=== PATIENT | female | born 1940 | race Two or more races ===

== ENCOUNTER → 2024-02-13 | Outpatient (CLI) | payer OTHER ==
[~2024-02-13] MED LIST: LIDOCAINE 2%HCL (LOCAL ANESTH.) INJ 10ml MDV ONE; MIDAZOLAM HCL 2MG/2ML 2ml VIAL (1mg/ml) ONE; fentaNYL CITRATE 100 MCG/2 ML VL ONE
--- NOTE | 2024-02-13 11:32 | DVH ---
CT CT GUIDANCE FOR NEEDLE PLACEME, HISTORY: ANEMIA/BONE MARROW ASPIRATION BIOPSY COMPARISON: None PROCEDURE: Informed consent and time-out was performed before the procedure. The left posterior pelv ic bone was marked, sterilized, draped, and locally anesthetized using approximately 10 ml of 1% lido yonathan. Axial CT images were used for localization. A 13 gauge [facility] Bone Biopsy kit was used to t ashok 16 mL of aspirate and 1 core sample. The biopsy needle was then removed. No immediate complicatio ns noted. FINDINGS: Axial CT images demonstrates biopsy needle within the left posterior pelvic bone. IMPRESSION: Successful CT-guided aspiration and marrow biopsy of the left posterior pelvic bone.
== END | disposition home or self-care (01) ==
LOC: CT 08:39
PROVIDERS: ATTEND Internal Medicine
DX: D64.9 Anemia, unspecified (principal); I12.9 Hypertensive chronic kidney disease with stage 1 through stage 4 chronic kidney disease, or unspecified chronic kidney disease; N18.6 End stage renal disease; Z99.2 Dependence on renal dialysis; E78.00 Pure hypercholesterolemia, unspecified; E03.9 Hypothyroidism, unspecified; Z79.890 Hormone replacement therapy
CPT/HCPCS: 38222; 77012; J2001; J2250; J3010; 10005; 72192; 99152

== ENCOUNTER 2024-07-03 20:50 | Inpatient (IN) | payer OTHER ==
[~2024-07-03] VITALS: Ht 152.4 cm; Wt 56.8 kg
[2024-07-03] MEDS: IPRATROPIUM BROM 0.5 MG/2.5ML INH SOL NEB ONE (21:30)
[2024-07-03] MEDS: ALBUTEROL SULF 2.5 MG/0.5ML(0.5%) NEB SOLN NEB ONE (21:30)
--- NOTE | 2024-07-03 21:34 | ED.PDOC ---
SOB-HPI HPI Comments 83 year old female brought in by EMS presents to the ED with a chief complaint of shortness of breath onset today around 20:00. Per EMS, patient was at home when she began experiencing shortness of breath, upon their arrival patient was on 2L O2, sat 97% with rapid breathing, breathing treatment was given. Patient states she was seen at [place] yesterday, diagnosed with COPD exacerbation, prescribed Prednisone, did not chicken picker medication. Patient gets dialysis Tuesday, , Tuesday. She is also experiencing RT leg swelling s/p fall 2 weeks ago. PMHx COPD, ESRD, HTN. Denies dizziness, headache, abdominal pain, chest pain, nausea, vomiting, diarrhea. No other symptoms or modifying factors present at this time. Chief Complaint: Shortness of Breath Time Seen by MD: 21:04 Reviewed notes: Medications, Allergies Information Source: Patient, Emergency Med Personnel Mode of Arrival: EMS Severity: Moderate Timing: Hours Duration: Since onset Context: At Rest PE Risk Factors: None History of: COPD Prehospital treatment: Breathing Tx Modifying Factors: Nothing Radiation: No Radiation Past Medical History PAST MEDICAL HISTORY: COPD, ESRD, HTN Surgical History: Unknown [employer] History: No Pertinent [employer] History Family History Family History: Reviewed,noncontributory to illness, No family hx of Cancer, No family hx of DM, No family hx of Heart carrie, No family hx of HTN, No family hx ofKidney carrie, No family hx of Liver carrie, No family hx of Lung carrie, No family hx of Stroke Social History Smoker: Non-Smoker Alcohol: Denies ETOH Use Drugs: Denies Drug Use Lives In: Home All Other Systems: Reviewed and Negative (Comprehensive systems review obtained and negative except for what is stated in the HPI.) Physical Exam General Appearance: Moderate Distress HEENT: Other (Pupils and face symmetric. Moist mucous membranes.) Neck: Full Range of Motion, Normal Inspection Respiratory: Accessory Muscle Use, Decreased Breath Sounds, Respiratory Distress, Rhonchi, Wheezing Cardiovascular: No JVD, Regular Rate/Rhythm Breast Exam: Deferred Gastrointestinal: Non Tender, Soft Genitalia: Deferred Pelvic: Deferred Rectal: Deferred Extremities: Normal range of motion, Other (Right ankle soft tissue swelling) Neurologic: Alert (Oriented x4), No Motor Deficits, Normal Affect, Normal Mood, No Sensory Deficits Cerebellar Function: NOT DONE Reflexes: NOT DONE Skin: Dry, Normal Color, Warm Lymphatic: NOT DONE EKG EKG : Comments Sinus rhythm, rate 90, LA prolonged at 218, normal QRS interval, QTC prolonged at 498, left axis deviation, possible old anteroseptal infarct, nonspecific T changes. Was a procedure done? Was a procedure done?: No Differential Dx Differential Diagnosis: Asthma, Bronchitis, CHF, COPD, Hyperventilation, Panic Attack, Pneumonia, Pulmonary Embolism, Respiratory Distress, URI X-Ray, Labs, Meds, VS Vital Signs Date Time Temp Pulse Resp B/P (MAP) Pulse Ox O2 Delivery O2 Flow Rate FiO2 07/04/24 06:00 93 25 159/84 (109) 95 07/04/24 04:00 90 07/04/24 04:00 87 22 164/79 (107) 95 07/04/24 02:00 86 20 146/67 (93) 94 07/04/24 00:00 87 18 162/104 (123) 94 07/04/24 00:00 115 07/03/24 22:30 98.6 93 12 149/69 (95) 96 98.6 07/03/24 22:30 93 12 96 Nasal Cannula* 4 36 07/03/24 21:30 22 96 Nasal Cannula* 4 36 07/03/24 21:14 90 07/03/24 20:58 98.4 98 20 173/92 (119) 97 Lab Test 07/04/24 00:20 07/03/24 23:30 07/03/24 22:49 07/03/24 21:53 Range/Units Troponin I High Sensitivity 45 *H 46 *H 46 *H </=34 ng/L Influenza Type A Antigen Negative Negative Influenza Type B Antigen Negative Negative SARS-CoV-2 Antigen (Rapid) Negative NEGATIVE White Blood Count 10.6 4.4-10.8 10^3/uL Red Blood Count 3.60 L 4.0-5.20 10^6/uL Hemoglobin 9.4 L 12.2-16.2 g/dL Hematocrit 30.6 L 36.0-46.0 % Mean Corpuscular Volume 85.0 80.0-100.0 fL Mean Corpuscular Hemoglobin 26.2 L 28.0-32.0 pg Mean Corpuscular Hemoglobin Concent 30.9 L 32.0-36.0 g/dL Red Cell Distribution Width 17.1 H 11.8-14.3 % Platelet Count 265 140-450 10^3/uL Mean Platelet Volume 7.5 6.9-10.8 fL Neutrophils (%) (Auto) 87.3 H 37.0-80.0 % Lymphocytes (%) (Auto) 4.3 L 10.0-50.0 % Monocytes (%) (Auto) 7.6 0.0-12.0 % Eosinophils (%) (Auto) 0.3 0.0-7.0 % Basophils (%) (Auto) 0.5 0.0-2.0 % Neutrophils # (Auto) 9.3 H 1.6-8.6 10 ^3/uL Lymphocytes # (Auto) 0.5 0.4-5.4 10 ^3/uL Monocytes # (Auto) 0.8 0-1.3 10 ^3/uL Eosinophils # (Auto) 0 0-0.8 10 ^3/uL Basophils # (Auto) 0.1 0-0.2 10 ^3/uL Nucleated Red Blood Cells 0.0 % B-Type Natriuretic Peptide > 5000.00 0-100 pg/mL Sodium Level 133 L 136-145 mmol/L Potassium Level 4.6 3.5-5.1 mmol/L Chloride Level 97 L 98-107 mmol/L Carbon Dioxide Level 28 20-31 mmol/L Anion Gap 8 5-15 Blood Urea Nitrogen 19 9-23 mg/dL Creatinine 3.22 H 0.550-1.02 mg/dL Glomerular Filtration Rate Calc 14 >90 mL/min BUN/Creatinine Ratio 5.9 L 10.0-20.0 Serum Glucose 106 74-106 mg/dL Calcium Level 9.2 8.7-10.4 mg/dL ORDERING PHYSICIAN: MAGALY ABAD MD PROCEDURE(s): CXRP - CHEST PORTABLE REASON: sob ORDER NUMBER(s): [id number], ACCESSION NUMBER(s): [id number] EXAM: XY CHEST PORTABLE CLINICAL HISTORY: sob TECHNIQUE: Single AP view of the chest WID: COMPARISON: None FINDINGS: Lines and tubes: None Chest: Cardiomegaly without overt pulmonary vascular congestion. Calcified plaque projects over the aortic arch. Interstitial prominence of the lungs. No pleural effusion, pneumothorax, or consolidation. Small left pleural effusion. The osseous structures are grossly intact. IMPRESSION: 1. Cardiomegaly and small left pleural effusion. 2. Interstitial prominence in the lungs which could be interstitial pulmonary edema ATED BY: JESSICA MEZA MD DICTATED DATE/TIME: 07/03/242233 SIGNED BY: JESSICA MEZA MD SIGNED DATE/TIME: 07/03/242233 CC: X-Ray, Labs, Meds, VS Comment 83-year-old female with a history of hypertension, COPD and end-stage renal disease on dialysis presenting with shortness of breath Vitals remarkable for BP 173/92 Exam remarkable for respiratory distress, diminished breath sounds, bilateral wheezes and rhonchi Rhythm strip independently interpreted by me: Sinus rhythm, rate 90, no ectopy. Chest x-ray IMPRESSION: 1. Cardiomegaly and small left pleural effusion. 2. Interstitial prominence in the lungs which could be interstitial pulmonary edema CBC remarkable for hemoglobin 9.4, hematocrit 30.6, metabolic panel remarkable for sodium 133, chloride 97, creatinine 3.22 BNP greater than 5000 Serial troponins 46 and 46 Patient treated with the following in the ED: Albuterol 5 mg/Atrovent 0.5 mg nebulized, Solu-Medrol 125 mg IV, aspirin 325 mg p.o., Ativan 1 mg p.o., Rocephin 1 g IV, Zithromax 500 mg IV On re-evaluation, patient is resting comfortably with stable vitals. Oxygen saturation is 95% on 2 L nasal cannula and patient is not in respiratory distress. Plan is to admit the patient for respiratory support as needed, ongoing serial troponins and Cardiology evaluation Time of 1ST Reevaluation: 22:04 Reevaluation 1ST: Unchanged Patient Education/Counseling: Diagnosis, Treatment, Need For Follow Up Family Education/Counseling: No Family Present Additional Information The following tests were ordered, and results were reviewed by me: TROP-x3, CBC, BNP, XY CHEST, UA, BMP, EKG, COVID, RAPID INFLUENZA A&B Additional Information was gathered from interviewing the following independent historians: EMS I reviewed and agreed with the following test results read by other providers: XY CHEST I discussed treatment and results with medical personnel and: patient Departure 1 Departure Time of Disposition: 00:39 Impression: Primary Impression: COPD with acute exacerbation Additional Impressions: [id number] respiratory failure Qualified Codes: J96.20 - Acute and chronic respiratory failure, unspecified whether with hypoxia or hypercapnia Pleural effusion Fluid overload Qualified Codes: E87.70 - Fluid overload, unspecified Elevated troponin Disposition: 09 ADMITTED INPATIENT Admit to: Tele Condition: Guarded Critical Care Note Critical Care Time?: Yes (45 min-critical care time only) Critical care comment: Critical care time including multiple bedside re-evaluations, review of lab and imaging studies, and discussion of the case with the admitting provider. Patient is high risk for respiratory and/or hemodynamic decompensation. Stability Stability form required: No Heart Score Heart Score: Heart Score Response (Comments) Value History N/A 0 EKG N/A 0 Age N/A 0 Risk Factors N/A 0 Troponin N/A 0 Total 0 I personally scribed for MAGALY ABAD MD ([email or web address]) on 07/03/24 at 21:34. Electronically submitted by Geri Mendez ([email or web address]). I personally scribed for MAGALY ABAD MD ([email or web address]) on 07/03/24 at 22:05. Electronically submitted by Geri Mendez ([email or web address]). I personally scribed for MAGALY ABAD MD ([email or web address]) on 07/03/24 at 23:17. Electronically submitted by Geri Mendez ([email or web address]). I personally scribed for MAGALY ABAD MD ([email or web address]) on 07/03/24 at 23:30. Electronically submitted by Geri Mendez ([email or web address]). MAGALY ABAD MD Jul 03, 2024 21:34
[2024-07-03 22:30] VITALS: PULSE 93; RESP 12; O2SAT 96
--- NOTE | 2024-07-03 22:37 | DVH ---
EXAM: XY CHEST PORTABLE CLINICAL HISTORY: sob TECHNIQUE: Single AP view of the chest WID: COMPARISON: None FINDINGS: Lines and tubes: None Chest: Cardiomegaly without overt pulmonary vascular congestion. Calcified plaque projects over the aortic a rch. Interstitial prominence of the lungs. No pleural effusion, pneumothorax, or consolidation. Small left pleural effusion. The osseous structures are grossly intact. IMPRESSION: 1. Cardiomegaly and small left pleural effusion. 2. Interstitial prominence in the lungs which could be interstitial pulmonary edema
[2024-07-03] MEDS: methylPREDNISolone SOD SUCC 125 MG/2 ML VL IV ONE (22:45)
[2024-07-03 23:03] LABS: Potassium 4.6 mmol/L (3.5-5.1)
[2024-07-03 23:04] LABS: Anion Gap 8 (5-15); Calcium 9.2 mg/dL (8.7-10.4); Carbon Dioxide 28 mmol/L (20-31)
[2024-07-03 23:04] LABS: Basophils # (auto) 0.1 10 ^3/uL (0-0.2); Hematocrit 30.6 % (36.0-46.0); Lymphocytes # (auto) 0.5 10 ^3/uL (0.4-5.4); Mean Corpuscular Hgb Conc. 30.9 g/dL (32.0-36.0)
[2024-07-03 23:06] LABS: Basophils % (auto) 0.5 % (0.0-2.0); Eosinophils # (auto) 0 10 ^3/uL (0-0.8); Eosinophils % (auto) 0.3 % (0.0-7.0); Hemoglobin 9.4 g/dL (12.2-16.2); Lymphocytes % (auto) 4.3 % (10.0-50.0); Mean Corpuscular Hemoglobin 26.2 pg (28.0-32.0); Monocytes # (auto) 0.8 10 ^3/uL (0-1.3); Monocytes % (auto) 7.6 % (0.0-12.0); Neutrophils # (auto) 9.3 10 ^3/uL (1.6-8.6); Neutrophils % (auto) 87.3 % (37.0-80.0); Platelet Count (auto) 265 10^3/uL (140-450); Red Cell Distribution Width 17.1 % (11.8-14.3); White Blood Cell 10.6 10^3/uL (4.4-10.8)
[2024-07-03 23:09] LABS: BUN/Creatinine Ratio 5.9 (10.0-20.0); Blood Urea Nitrogen 19 mg/dL (9-23); Glucose 106 mg/dL (74-106)
[2024-07-03 23:11] LABS: Chloride 97 mmol/L (98-107); Sodium 133 mmol/L (136-145)
[2024-07-03] MEDS: ASPirin 325 MG TAB PO ONE (23:40)
[2024-07-03] MEDS: LORazepam 0.5 MG TAB PO ONE (23:41)
[2024-07-04] VITALS (12 sets, daily range): BP systolic 114–152; BP diastolic 61–87; PULSE 89–109; RESP 17–21; TEMP 98.1–98.6; O2SAT 88–100
[2024-07-04 00:33] LABS: Rapid Influenza A Negative (Negative); Rapid Influenza B Negative (Negative)
[2024-07-04 00:34] LABS: COVID19 ANTIGEN SOFIA FIA NEGATIVE (NEGATIVE)
[2024-07-04] MEDS: cefTRIAXone 1GM/50ML D5W 50 ML IV ONE (01:27)
[2024-07-04] MEDS: AZITHROMYCIN 500MG/ 250ML 250 ML IV ONE (02:00)
--- NOTE | 2024-07-04 06:14 | ECG ---
[facility] Test Date: 2024-07-03 Test Time: 21:14:56 Pat Name: LEANA HAYWOOD Department: ER Room: 0292T Gender: F E Learning Developer: : [id number] Requested By: MAGALY RANGEL Order Number: [id number] Reading MD: Leonardo Barron Measurements Intervals [place] Rate: 90 P: 234 VT: 218 QRS: -33 QRSD: 100 T: 38 QT: 407 QTc: 498 Interpretive Statements Sinus or ectopic atrial rhythm Borderline prolonged VT interval Left ventricular hypertrophy Borderline prolonged QT interval Electronically Signed On 07-05-2024 11:59:19 PST by Leonardo Barron Please click the below link to view image of tracing.
[2024-07-04] MEDS ORDERED: HYDROcodone-ACET 5/325MG TAB PO PRN (08:00)
[2024-07-04] MEDS ORDERED: IPRATROPIUM BROM 0.5 MG/2.5ML INH SOL NEB PRN (08:00)
[2024-07-04] MEDS ORDERED: ACETAMINOPHEN 325 MG TAB PO PRN (08:00)
[2024-07-04] MEDS ORDERED: DOCUSATE SOD 100 MG CAP PO PRN (08:00)
[2024-07-04] MEDS ORDERED: NITROGLYCERIN 0.4 MG SL TAB SL PRN (08:00)
[2024-07-04] MEDS ORDERED: ALBUTEROL SULF 2.5 MG/0.5ML(0.5%) NEB SOLN NEB PRN (08:00)
[2024-07-04] MEDS ORDERED: MORPHINE SULFATE INJ 2 MG/ml SYRG IV PRN (08:00)
[2024-07-04] MEDS ORDERED: ONDANSETRON HCL 4 MG/2 ML VIAL IV PRN (08:00)
--- NOTE | 2024-07-04 08:14 | DVHHP2 ---
History of Present Illness Reason for Visit: Shortness of breath History of Present Illness Mindy Donnelly is an 83-year-old female with past medial history of COPD, hypertension, hyperlipidemia, hypothyroidism, and ESRD on HD T,,Tue, who came to the hospital for shortness of breath. Patient states she has been short of breath for about 1 week. She went to a different hospital 2 days ago, who gave her a breathing treatment and sent her home. On assessment, patient is tachypneic, using accessory muscles, and wheezing. RT has been paged for a breathing treatment. Cardiovascular: HTN, hyperipidemia Renal/: Chronic renal failure (on HD) Endocrine: Hypothyroidism Past Surgical History: Hysterectomy, Other (Left arm fistula) Smoke: No ALCOHOL: none Drugs: None Lives: with Family Domestic Violence: Neg Review of Systems Constitutional: No: Fever, Chills, Sweats, Weakness, Malaise, Other Eyes: No: Pain, Vision change, Conjunctivae inflammation, Eyelid inflammation, Other, Redness ENT: No: Ear pain, Ear discharge, Nose pain, Nose discharge, Nose congestion, Mouth pain, Mouth swelling, Throat pain, Throat swelling, Other Respiratory: Shortness of breath, SOB with excertion, Wheezing; No: Cough, Dry, Hemoptysis, Pleuritic Pain, Sputum, Wheezing, Other Cardiovascular: No: Chest Pain, Palpitations, Orthopnea, Paroxysmal Noc. Dyspnea, Edema, Lt Headedness, Other Gastrointestinal: No: Nausea, Vomiting, Abdominal Pain, Diarrhea, Constipation, Melena, Hematochezia, Other Genitourinary: No Dysuria, No Frequency, No Incontinence, No Hematuria, No Retention, No Other Musculoskeletal: No: other, neck pain, shoulder pain, arm pain, back pain, hand pain, leg pain, foot pain Skin: No: Rash, Lesions, Jaundice, Bruising, Other Neurological: No: Weakness, Numbness, Incoordination, Change in speech, Confusion, Seizures, Other Allergies: Coded Allergies: NO KNOWN ALLERGIES (Unverified , 07/03/24) Medications Current Medications Medications Dose Ordered Sig/Nirmal Route Start Time Stop Time Status Last Admin Dose Admin Sodium Chloride 10 ml Q8HR IV 07/04/24 14:00 UNV Acetaminophen/ Hydrocodone Bitart 1 tab Q4HP PRN PO 07/04/24 08:00 UNV Ondansetron HCl 4 mg Q4HP PRN IV 07/04/24 08:00 UNV Docusate Sodium 100 mg BIDPRN PRN PO 07/04/24 08:00 UNV Acetaminophen 650 mg Q6HP PRN PO 07/04/24 08:00 UNV Nitroglycerin 0.4 mg Q5MINP PRN SL 07/04/24 08:00 UNV Morphine Sulfate 2 mg Q30M PRN IV 07/04/24 08:00 UNV Ipratropium [place] 0.5 mg Q4HPRN PRN NEB 07/04/24 08:00 UNV Albuterol 2.5 mg Q4HPRN PRN NEB 07/04/24 08:00 UNV Methylprednisolone Sodium Succinate 40 mg BID IV 07/04/24 10:00 UNV Exam Vital Signs Vital Signs Date Time Temp Pulse Resp B/P (MAP) Pulse Ox O2 Delivery O2 Flow Rate FiO2 07/04/24 06:00 93 25 159/84 (109) 95 07/03/24 22:30 98.6 98.6 07/03/24 22:30 Nasal Cannula* 4 36 General Appearance: Alert, Oriented X3, Cooperative, moderate distress HEENT: Atraumatic, PERRLA Respiratory: Other (Tachypneic, using accessory muscles, wheezing) Cardiovascular: Regular rate, Normal S1, Normal S2 Abdominal: Normal bowel sounds, Soft, No tenderness Extremities: No clubbing, No cyanosis, Normal pulses, Other (edema to right ankle) Skin: No rashes, No breakdown, No significant lesion Neuro: Normal speech, Other (uses a walker at baseline) Psych/Mental Status: Mental status NL, Mood NL Labs/Xrays Labs Test 07/04/24 00:20 07/03/24 23:30 07/03/24 22:49 07/03/24 21:53 Range/Units Troponin I High Sensitivity 45 *H </=34 ng/L Influenza Type A Antigen Negative Negative Influenza Type B Antigen Negative Negative SARS-CoV-2 Antigen (Rapid) Negative NEGATIVE White Blood Count 10.6 4.4-10.8 10^3/uL Red Blood Count 3.60 L 4.0-5.20 10^6/uL Hemoglobin 9.4 L 12.2-16.2 g/dL Hematocrit 30.6 L 36.0-46.0 % Mean Corpuscular Volume 85.0 80.0-100.0 fL Mean Corpuscular Hemoglobin 26.2 L 28.0-32.0 pg Mean Corpuscular Hemoglobin Concent 30.9 L 32.0-36.0 g/dL Red Cell Distribution Width 17.1 H 11.8-14.3 % Platelet Count 265 140-450 10^3/uL Mean Platelet Volume 7.5 6.9-10.8 fL Neutrophils (%) (Auto) 87.3 H 37.0-80.0 % Lymphocytes (%) (Auto) 4.3 L 10.0-50.0 % Monocytes (%) (Auto) 7.6 0.0-12.0 % Eosinophils (%) (Auto) 0.3 0.0-7.0 % Basophils (%) (Auto) 0.5 0.0-2.0 % Neutrophils # (Auto) 9.3 H 1.6-8.6 10 ^3/uL Lymphocytes # (Auto) 0.5 0.4-5.4 10 ^3/uL Monocytes # (Auto) 0.8 0-1.3 10 ^3/uL Eosinophils # (Auto) 0 0-0.8 10 ^3/uL Basophils # (Auto) 0.1 0-0.2 10 ^3/uL Nucleated Red Blood Cells 0.0 % B-Type Natriuretic Peptide > 5000.00 0-100 pg/mL Sodium Level 133 L 136-145 mmol/L Potassium Level 4.6 3.5-5.1 mmol/L Chloride Level 97 L 98-107 mmol/L Carbon Dioxide Level 28 20-31 mmol/L Anion Gap 8 5-15 Blood Urea Nitrogen 19 9-23 mg/dL Creatinine 3.22 H 0.550-1.02 mg/dL Glomerular Filtration Rate Calc 14 >90 mL/min BUN/Creatinine Ratio 5.9 L 10.0-20.0 Serum Glucose 106 74-106 mg/dL Calcium Level 9.2 8.7-10.4 mg/dL EXAM: XY CHEST PORTABLE FINDINGS: Lines and tubes: None Chest: Cardiomegaly without overt pulmonary vascular congestion. Calcified plaque projects over the aortic arch. Interstitial prominence of the lungs. No pleural effusion, pneumothorax, or consolidation. Small left pleural effusion. The osseous structures are grossly intact. IMPRESSION: 1. Cardiomegaly and small left pleural effusion. 2. Interstitial prominence in the lungs which could be interstitial pulmonary edema Assessment/Plan Assessment/Plan Assessment: COPD with acute exacerbation, ESRD on HD, Hypertension, Hypothyroidism, Hyperlipidemia, Plan: Admit to Tele, Nephrology consult, Breathing treatments IV steroids, IV antibiotics, Fall risk, Home medications reconciled, Plan discussed with: Patient My Orders Orders - KAMLA HERBERT GRAIN COMBINER Procedure Category Date Status Time Admit ADMIT 07/04/24 Transmitted 07:52 Code Status CODE 07/04/24 Transmitted 07:52 Renal DIET 07/04/24 Transmitted Standard(2gna,3gk,Lopho) Breakfast Sodium Chloride Lock PHA 07/04/24 Logged (Saline Lock Ns) 14:00 Hydrocodone-Acet PHA 07/04/24 Logged 5/325mg Tab ([facility] 08:00 Ondansetron Hcl PHA 07/04/24 Logged (Zofran) 08:00 Docusate Sodium PHA 07/04/24 Logged Capsule (Colace 08:[address] [facility] 07/04/[address] 07:52 Complete Blood Count LAB 07/05/24 Verified 04:00 Comprehensive LAB 07/05/24 Verified Metabolic Panel 04:00 Condition: Critical MARCO ANTONIO 07/04/24 In Process 07:52 Acetaminophen Tablet PHA 07/04/24 Logged (Tylenol Tablet) 08:00 Nitroglycerin PHA 07/04/24 Logged Sublingual (Ntrostat 08:00 Morphine Sulfate PHA 07/04/24 Logged Injection 08:00 Stat Ekg For Chest MARCO ANTONIO 07/04/24 In Process Pain 07:[address] [facility] 07/04/24 In Process From Base 07:[address] [facility] 07/04/24 In Process 24 Hours 07:52 Emergency Dysrhythmia MARCO ANTONIO 07/04/24 In Process Protocol 07:[address] [facility] 07/04/24 In Process Every Shift 07:52 Oxygen By Nasal RT 07/04/24 Transmitted Cannula 07:52 Ipratropium Medneb PHA 07/04/24 Logged (Atrovent Medneb) 08:00 Albuterol Medneb PHA 07/04/24 Logged (Ventolin Medneb) 08:00 Methylprednisolone PHA 07/04/24 Logged Sod Succ (Solu Medrol 10:00 *[facility] CONS 07/04/24 Verified Mar 08:07 Date of Service: Jul 04, 2024 Billing Provider: KAMLA HERBERT Common Visit Codes: [id number] INP/OBS CARE (MOD) KAMLA HERBERT Jul 04, 2024 08:14
[2024-07-04] MEDS ORDERED: AMLO1TAB23 PO (08:22)
[2024-07-04] MEDS ORDERED: SIMV40TA18 PO (08:22)
[2024-07-04] MEDS ORDERED: SERT25TA28 PO (08:22)
[2024-07-04] MEDS ORDERED: BUDE0.5S NEB (08:22)
[2024-07-04] MEDS ORDERED: FURO20TA4 PO (08:22)
[2024-07-04] MEDS ORDERED: MEGE40TA4 PO (08:22)
[2024-07-04] MEDS ORDERED: TRAZ300T13 PO (08:22)
[2024-07-04] MEDS ORDERED: LEVO75TA6 PO (08:22)
[2024-07-04] MEDS ORDERED: DONE1TAB88 PO (08:22)
[2024-07-04] MEDS: IPRATROPIUM BROM 0.5 MG/2.5ML INH SOL NEB SCH (09:16)
[2024-07-04] MEDS: BUDESONIDE (INHALATION) 0.5 MG/2 ML NEB NEB SCH (09:16)
[2024-07-04] MEDS: ALBUTEROL SULF 2.5 MG/0.5ML(0.5%) NEB SOLN NEB SCH (09:17)
[2024-07-04] MEDS ORDERED: traZODone HCL 50 MG TAB PO PRN (09:30)
[2024-07-04] MEDS: MEGESTROL ACETATE 20 MG TAB PO SCH (10:00)
[2024-07-04 10:40] LABS: Base Excess 1.5 mmol/L (-2.0-3.0)
[2024-07-04] MEDS: DONEPEZIL HYDROCHLORIDE 5 MG TAB PO SCH (10:40)
[2024-07-04] MEDS: LEVOTHYROXINE SODIUM 25 MCG TAB PO SCH (10:40)
[2024-07-04] MEDS: SERTRALINE HCL 50 MG TAB PO SCH (10:41)
[2024-07-04] MEDS: amLODIPine BESYLATE 5 MG TAB PO SCH (10:41)
[2024-07-04] MEDS: FUROSEMIDE 20 MG TAB PO SCH (10:41)
[2024-07-04] MEDS: methylPREDNISolone SOD SUCC 40 MG/ML VL IV SCH (10:42)
--- NOTE | 2024-07-04 11:53 | DVHPN2 ---
Subjective patient reports worsening SOB at home. States she is compliant with HD. Placed on Bipap this morning. Much more comfortable. Reviewed: Care Plan, H&P Changes from previous H/P or p: Changes Eyes: No Pain, No Vision change, No Conjunctivae inflammation, No Eyelid inflammation, No Other, No Redness ENT: No Ear pain, No Ear discharge, No Nose pain, No Nose discharge, No Nose congestion, No Mouth pain, No Mouth swelling, No Throat pain, No Throat swelling, No Other Cardiovascular: No Chest Pain, No Palpitations, No Orthopnea, No Paroxysmal Noc. Dyspnea, No Edema, No Lt Headedness, No Other Respiratory: No Cough, No Dry; Shortness of breath, SOB with excertion, W heezing; No Hemoptysis, No Pleuritic Pain, No Sputum, No Other Gastrointestinal: No Nausea, No Vomiting, No Abdominal Pain, No Diarrhea, No Constipation, No Melena, No Hematochezia, No Other Genitourinary: No Dysuria, No Frequency, No Incontinence, No Hematuria, No Retention, No Other Musculoskeletal: No other, No neck pain, No shoulder pain, No arm pain, No back pain, No hand pain, No leg pain, No foot pain Skin: No Rash, No Lesions, No Jaundice, No Bruising, No Other Objective Vitals Vital Signs Date Time Temp Pulse Resp B/P (MAP) Pulse Ox O2 Delivery O2 Flow Rate FiO2 07/04/24 10:50 95 Bi-pap/CPAP 07/04/24 10:50 30 30 07/04/24 10:50 96 152/68 07/04/24 09:36 98.8 28 98.8 07/04/24 09:36 4 Intake/Output Intake and Output 07/04/24 07:00 Intake Total 50 ml Balance 50 ml Intake IV Total 50 ml General Appearance: Alert, Oriented X3, mild distress HEENT: Atraumatic Lungs: Other (Crackles and mechincal bipap sounds. ) Cardiovascular: Regular rate, Normal S1, Normal S2 Abdomen: Soft, No tenderness Musculoskeletal: Normal sensory function Extremities: No edema Neuro: Normal speech Psych/Mental Status: Mental status NL Medications Current Medications Medications Dose Ordered Sig/Nirmal Route Start Time Stop Time Status Last Admin Dose Admin Sodium Chloride 10 ml Q8HR IV 07/04/24 14:00 Acetaminophen/ Hydrocodone Bitart 1 tab Q4HP PRN PO 07/04/24 08:00 Ondansetron HCl 4 mg Q4HP PRN IV 07/04/24 08:00 Docusate Sodium 100 mg BIDPRN PRN PO 07/04/24 08:00 Acetaminophen 650 mg Q6HP PRN PO 07/04/24 08:00 Nitroglycerin 0.4 mg Q5MINP PRN SL 07/04/24 08:00 Morphine Sulfate 2 mg Q30M PRN IV 07/04/24 08:00 Methylprednisolone Sodium Succinate 40 mg BID IV 07/04/24 10:00 07/04/24 10:42 40 MG Budesonide 0.5 mg BID NEB 07/04/24 10:00 07/04/24 09:16 0.5 MG Furosemide 20 mg DAILY PO 07/04/24 10:00 07/04/24 10:41 20 MG Amlodipine Besylate 10 mg DAILY PO 07/04/24 10:00 07/04/24 10:41 10 MG Donepezil HCl 10 mg DAILY PO 07/04/24 10:00 07/04/24 10:40 10 MG Levothyroxine Sodium 75 mcg DAILY@0700 PO 07/04/24 10:00 07/04/24 10:40 75 MCG Megestrol Acetate 40 mg BID PO 07/04/24 10:00 Sertraline HCl 25 mg DAILY PO 07/04/24 10:00 07/04/24 10:41 25 MG Atorvastatin Calcium 20 mg HS PO 07/04/24 22:00 Trazodone HCl 300 mg QHSP PRN PO 07/04/24 09:30 Albuterol 2.5 mg Q4HWA NEB 07/04/24 10:00 07/04/24 09:17 2.5 MG Ipratropium [place] 0.5 mg Q4HWA NEB 07/04/24 10:00 07/04/24 09:16 0.5 MG Ceftriaxone Sodium 50 ml @ 100 mls/hr DAILY@09 IV 07/05/24 09:00 UNV Furosemide 80 mg BIDD IV 07/04/24 18:00 UNV Laboratory Results Laboratory Tests 07/03/24 21:53 07/03/24 22:49 Chemistry Test 07/03/24 21:53 Calcium Level 9.2 mg/dL (8.7-10.4) Cardiac Markers Test 07/03/24 22:49 B-Type Natriuretic Peptide > 5000.00 pg/mL (0-100) Blood Gas Results Test 07/04/24 10:30 Arterial Blood pH 7.538 (7.350-7.450) FiO2 % 36.0 Assessment/Plan Assessment/Plan Acute Resp failu with hypoxia. oxygen sat down to mid 80s on NC. Most likely 2/2 COPD exascerbation vs fluid overload form ESRD. COPD with acute exacerbation ESRD on HD Hypertension, Hypothyroidism, Hyperlipidemia, dementia Plan: Continue on Bipap ABG on Bipap Consult Pulm Ceft and Azitro continue Doneepil. Nephrology consult appreciated Breathing treatments IV steroids, FULL CODE/ Plan discussed with: Patient My Orders Orders - JAVID CLIFTON MD Procedure Category Date Status Time Abg W/ Co-Ox RT 07/04/24 Logged 10:14 BIPAP RT 07/04/24 Logged 10:40 Date of Service: Jul 04, 2024 Billing Provider: JAVID CLIFTON MD Common Visit Codes: [id number] INP/OBS CARE(HIGH) JAVID CLIFTON MD Jul 04, 2024 11:53
[2024-07-04] MEDS: SODIUM CHLOR 0.9% PF (SALINE LOCK) 10ML VIAL/SYR IV SCH (14:09)
--- NOTE | 2024-07-04 16:03 | DVHINCON2 ---
Date of service: Jul 04, 2024 Referring Physician KYLEIGH Marie. Reason for Consultation End-stage renal disease management. History of Present Illness 83-year-old patient with significant history of end-stage renal disease on hemodialysis Tuesday, and Saturdays with last dialysis session was yesterday, CHF, COPD, chronic hypoxic respiratory failure, hyperlipidemia, anemia who presents to the hospital with shortness of breath for about one week which has been worsening and unrelieved by ultrafiltration with dialysis. She denies fever chills denies hemoptysis but she has significant history of COPD and has been also wheezing with minimal improvement with bronchodilator therapy. Her symptoms have been associated with mild right leg swelling. She was seen in the hospital and diagnosed with COPD exacerbation. Initial labs revealed finding consistent with end-stage renal disease status in addition to chest x-ray showing cardiomegaly, interstitial markings increased Past Medical History End-stage renal disease, hypertension, hyperlipidemia, COPD, chronic hypoxic respiratory failure, anemia. Past Surgical History Hemodialysis access placement. Allergies: Coded Allergies: NO KNOWN ALLERGIES (Unverified , 07/03/24) Home Meds Reported Medications Furosemide (Furosemide) 20 Mg Tab, 1 TAB PO DAILY 07/04/24 Megestrol Acetate (Megestrol Acetate) 40 Mg Tab, 1 TAB PO BID 07/04/24 Sertraline Hcl (Sertraline Hcl) 25 Mg Tab, 1 TAB PO DAILY 07/04/24 Donepezil Hydrochloride (DONEPEZIL HCL) 10 Mg Tab, 1 TAB PO DAILY 07/04/24 Levothyroxine Sodium (Levothyroxine Sodium) 75 Mcg Tab, 1 TAB PO DAILY 07/04/24 Simvastatin (Simvastatin) 40 Mg Tab, 1 TAB PO HS 07/04/24 Trazodone Hcl (Trazodone Hcl) 300 Mg Tab, 1 TAB PO QHSP PRN 07/04/24 Budesonide (Inhalation) (Budesonide) 0.5 Mg/2 Ml Kiya, 1 VIAL NEB BID 07/04/24 Amlodipine Besylate (Amlodipine Besylate) 10 Mg Tab, 1 TAB PO DAILY 07/04/24 Current Medications Current Medications Medications (Trade) Dose Ordered Sig/Nirmal Route PRN Reason Start Time Stop Time Status Last Admin Sodium Chloride (Saline Lock Ns) 10 ml Q8HR IV 07/04/24 14:00 07/04/24 14:09 Acetaminophen/ Hydrocodone Bitart ([place] 5/325MG Tab) 1 tab Q4HP PRN PO MODERATE PAIN (4-6 PAIN SCALE) 07/04/24 08:00 Ondansetron HCl (Zofran) 4 mg Q4HP PRN IV NAUSEA / VOMITING 07/04/24 08:00 Docusate Sodium (Colace Capsule) 100 mg BIDPRN PRN PO FOR CONSTIPATION 07/04/24 08:00 Acetaminophen (Tylenol Tablet) 650 mg Q6HP PRN PO PAIN SCALE 1-3 OR TEMP>100.4 07/04/24 08:00 Nitroglycerin (Ntrostat Sublingual) 0.4 mg Q5MINP PRN SL FOR CHEST PAIN 07/04/24 08:00 Morphine Sulfate 2 mg Q30M PRN IV FOR CHEST PAIN 07/04/24 08:00 Ipratropium [place] (Atrovent Medneb) 0.5 mg Q4HPRN PRN NEB SHORTNESS OF BREATH 07/04/24 08:00 07/04/24 08:25 DC Albuterol (Ventolin Medneb) 2.5 mg Q4HPRN PRN NEB SHORTNESS OF BREATH 07/04/24 08:00 07/04/24 08:25 DC Methylprednisolone Sodium Succinate (Solu Medrol) 40 mg BID IV 07/04/24 10:00 07/04/24 10:42 Budesonide (Pulmicort) 0.5 mg BID NEB 07/04/24 10:00 07/04/24 09:16 Furosemide (Lasix Tablet) 20 mg DAILY PO 07/04/24 10:00 07/04/24 11:55 DC 07/04/24 10:41 Amlodipine Besylate (Norvasc Tablet) 10 mg DAILY PO 07/04/24 10:00 07/04/24 10:41 Donepezil HCl (Aricept Tablet) 10 mg DAILY PO 07/04/24 10:00 07/04/24 10:40 Levothyroxine Sodium (Synthroid Tablet) 75 mcg DAILY@0700 PO 07/04/24 10:00 07/04/24 10:40 Megestrol Acetate (Megace Tablet) 40 mg BID PO 07/04/24 10:00 07/04/24 11:51 DC Sertraline HCl (Zoloft) 25 mg DAILY PO 07/04/24 10:00 07/04/24 10:41 Atorvastatin Calcium (Lipitor) 20 mg HS PO 07/04/24 22:00 Trazodone HCl (Desyrel) 300 mg QHSP PRN PO FOR INSOMNIA 07/04/24 09:30 Albuterol (Ventolin Medneb) 2.5 mg Q4HWA NEB 07/04/24 10:00 07/04/24 13:42 Ipratropium [place] (Atrovent Medneb) 0.5 mg Q4HWA NEB 07/04/24 10:00 07/04/24 13:42 Ceftriaxone Sodium 50 ml @ 100 mls/hr DAILY@09 IV 07/05/24 09:00 Furosemide (Lasix Injection) 80 mg BIDD IV 07/04/24 18:00 Azithromycin 250 ml @ 125 mls/hr DAILY IV 07/05/24 10:00 Social History Patient denies smoking alcohol or drug abuse. Review of Systems HEENT: Oral mucosa dry Neck no JVD Cardiovascular: Denies for chest pain denies orthopnea or PND Respiratory: Positive for cough or shortness of breath Gastrointestinal: Denies for nausea vomiting Musculoskeletal: Denies myalgias Neurological: Denies focal weakness Dermatological: Denies any rash The rest of the review of systems were reviewed pertinent positives and pertinent negatives are as per HPI up to 12 points review of systems H&P Exam Vital Signs/I&O Vital Sign Date Time Temp Pulse Resp B/P (MAP) Pulse Ox O2 Delivery O2 Flow Rate FiO2 07/04/24 15:00 109 18 136/71 (92) 95 07/04/24 13:42 Nasal Cannula* 4 36 07/04/24 09:36 98.8 98.8 l Intake and Output 07/03/24 07/04/24 19:00 07:00 Intake Total 50 ml Balance 50 ml Intake IV Total 50 ml Physical Exam HEENT: No evidence of JVD, no oral ulcers. Pulmonary: Bilateral wheezing and decreased sounds at the bases are clear on auscultation bilaterally Cardiovascular S1-S2, no S3 or S4 Abdomen: Bowel sounds positive, soft no rebound tenderness Skin: No rash Neurological: Alert, oriented, no focal weakness Labs/Diagnostic Data Labs/Diagnostic Data Laboratory Tests Test 07/04/24 10:30 07/04/24 00:20 07/03/24 23:30 07/03/24 22:49 Range/Units Blood Gas Specimen Type Arterial Blood Gas Sample Site Right radial Blood Gas Patient Temperature 37.0 Arterial Blood Date Drawn Arterial Blood pH 7.538 H 7.350-7.450 Arterial Blood Partial Pressure CO2 28.3 L 32.0-45.0 mmHg Arterial Blood Partial Pressure O2 63.2 L 83.0-108.0 mmHg Arterial Blood HCO3 23.5 21.0-28.0 mmol/L Arterial Blood Oxygen Saturation 92.3 L 94.0-98.0 % Arterial Blood Base Excess 1.5 -2.0-3.0 mmol/L Arterial Blood Oxyhemoglobin 91.4 L 94.0-98.0 % Arterial Blood Carboxyhemoglobin 0.3 L 0.5-1.5 % Arterial Blood Methemoglobin 0.7 0.0-1.5 % Edwin Test Yes Blood Gas Total Hemoglobin 10.10 L 12.0-16.0 g/dL Blood Gas Modality Nasal cannula FiO2 % 36.0 Troponin I High Sensitivity 45 *H 46 *H </=34 ng/L Influenza Type A Antigen Negative Negative Influenza Type B Antigen Negative Negative SARS-CoV-2 Antigen (Rapid) Negative NEGATIVE White Blood Count 10.6 4.4-10.8 10^3/uL Red Blood Count 3.60 L 4.0-5.20 10^6/uL Hemoglobin 9.4 L 12.2-16.2 g/dL Hematocrit 30.6 L 36.0-46.0 % Mean Corpuscular Volume 85.0 80.0-100.0 fL Mean Corpuscular Hemoglobin 26.2 L 28.0-32.0 pg Mean Corpuscular Hemoglobin Concent 30.9 L 32.0-36.0 g/dL Red Cell Distribution Width 17.1 H 11.8-14.3 % Platelet Count 265 140-450 10^3/uL Mean Platelet Volume 7.5 6.9-10.8 fL Neutrophils (%) (Auto) 87.3 H 37.0-80.0 % Lymphocytes (%) (Auto) 4.3 L 10.0-50.0 % Monocytes (%) (Auto) 7.6 0.0-12.0 % Eosinophils (%) (Auto) 0.3 0.0-7.0 % Basophils (%) (Auto) 0.5 0.0-2.0 % Neutrophils # (Auto) 9.3 H 1.6-8.6 10 ^3/uL Lymphocytes # (Auto) 0.5 0.4-5.4 10 ^3/uL Monocytes # (Auto) 0.8 0-1.3 10 ^3/uL Eosinophils # (Auto) 0 0-0.8 10 ^3/uL Basophils # (Auto) 0.1 0-0.2 10 ^3/uL Nucleated Red Blood Cells 0.0 % B-Type Natriuretic Peptide > 5000.00 0-100 pg/mL Test 07/03/24 21:53 Range/Units Sodium Level 133 L 136-145 mmol/L Potassium Level 4.6 3.5-5.1 mmol/L Chloride Level 97 L 98-107 mmol/L Carbon Dioxide Level 28 20-31 mmol/L Anion Gap 8 5-15 Blood Urea Nitrogen 19 9-23 mg/dL Creatinine 3.22 H 0.550-1.02 mg/dL Glomerular Filtration Rate Calc 14 >90 mL/min BUN/Creatinine Ratio 5.9 L 10.0-20.0 Serum Glucose 106 74-106 mg/dL Calcium Level 9.2 8.7-10.4 mg/dL Troponin I High Sensitivity 46 *H </=34 ng/L Chest x-ray shows increased interstitial markings and left-sided pleural effusion Assessment Assessment: 1. End-stage renal disease on hemodialysis 2. Acute COPD exacerbation 3. Acute CHF 4. Anemia of end-stage renal disease 5. Hypertension 6. Acute on chronic hypoxic respiratory failure Plan: Hemodialysis today, tomorrow for her regular session Limit fluid intake Lasix IV Bronchodilator therapy, steroids, antibiotics as per primary team Less than 1 L per day Slava for goal hemoglobin 10 g to 11 grams/deciliter Continue antihypertensive med Oxygen supplementation to keep pulses more than 92% Thank you very much for allowing us to participate in the care of this patient Plan discussed with: Patient GEOFF JOE MD Jul 04, 2024 16:03
[2024-07-04] MEDS: FUROSEMIDE 40 MG/4 ML VIAL IV SCH (18:18)
--- NOTE | 2024-07-04 21:15 | DVHINCON2 ---
Date of service: Jul 04, 2024 Referring Physician Javid Clifton MD Reason for Consultation COPD exacerbation History of Present Illness An 83-year-old woman with past medical history of COPD, hypertension, hyperlipidemia, hypothyroidism, and ESRD on hemodialysis T-T- who presented to ED on 07/03/24 for shortness of breath. Patient states she has been short of breath for about 1 week. She went to a different hospital 2 days ago, where she got a breathing treatment and was DC'd home. On assessment, patient was tachypneic, using accessory muscles, and wheezing. She was admitted for further care and pulmonary consultation is requested for evaluation and management of acute on chronic hypoxic respiratory failure and COPD exacerbation. Review of Systems: 14-point review of systems negative unless otherwise noted above. Past Medical History: COPD, hypertension, hyperlipidemia, hypothyroidism, and ESRD on hemodialysis T-- Past Surgical History: Hysterectomy, Other (Left arm fistula) Medications: Reviewed. Allergies: No known drug allergies. Family History: No family history of premature CAD. No family history of lung disorders. Social History: Nonsmoker. No alcohol or illicit drug use. Allergies: Coded Allergies: NO KNOWN ALLERGIES (Unverified , 07/03/24) Home Meds Active Scripts Prednisone (Prednisone) 20 Mg Tab, 20 MG PO BID for 2 Days, #4 MG Prov:JAVID CLIFTON MD 07/06/24 Azithromycin (ZITHROMAX TABLET) 250 Mg Tb, 250 MG PO DAILY for 3 Days, #3 TAB Prov:JAVID CLIFTON MD 07/06/24 Reported Medications Furosemide (Furosemide) 20 Mg Tab, 1 TAB PO DAILY 07/04/24 Sertraline Hcl (Sertraline Hcl) 25 Mg Tab, 1 TAB PO DAILY 07/04/24 Donepezil Hydrochloride (DONEPEZIL HCL) 10 Mg Tab, 1 TAB PO DAILY 07/04/24 Levothyroxine Sodium (Levothyroxine Sodium) 75 Mcg Tab, 1 TAB PO DAILY 07/04/24 Simvastatin (Simvastatin) 40 Mg Tab, 1 TAB PO HS 07/04/24 Trazodone Hcl (Trazodone Hcl) 300 Mg Tab, 1 TAB PO QHSP PRN 07/04/24 Budesonide (Inhalation) (Budesonide) 0.5 Mg/2 Ml Kiya, 1 VIAL NEB BID 07/04/24 Amlodipine Besylate (Amlodipine Besylate) 10 Mg Tab, 1 TAB PO DAILY 07/04/24 Discontinued Reported Medications Megestrol Acetate (Megestrol Acetate) 40 Mg Tab, 1 TAB PO BID 07/04/24 Current Medications Current Medications Medications (Trade) Dose Ordered Sig/Nirmal Route PRN Reason Start Time Stop Time Status Last Admin Sodium Chloride (Saline Lock Ns) 10 ml Q8HR IV 07/04/24 14:00 07/04/24 14:09 Acetaminophen/ Hydrocodone Bitart ([place] 5/325MG Tab) 1 tab Q4HP PRN PO MODERATE PAIN (4-6 PAIN SCALE) 07/04/24 08:00 Ondansetron HCl (Zofran) 4 mg Q4HP PRN IV NAUSEA / VOMITING 07/04/24 08:00 Docusate Sodium (Colace Capsule) 100 mg BIDPRN PRN PO FOR CONSTIPATION 07/04/24 08:00 Acetaminophen (Tylenol Tablet) 650 mg Q6HP PRN PO PAIN SCALE 1-3 OR TEMP>100.4 07/04/24 08:00 Nitroglycerin (Ntrostat Sublingual) 0.4 mg Q5MINP PRN SL FOR CHEST PAIN 07/04/24 08:00 Morphine Sulfate 2 mg Q30M PRN IV FOR CHEST PAIN 07/04/24 08:00 Ipratropium [place] (Atrovent Medneb) 0.5 mg Q4HPRN PRN NEB SHORTNESS OF BREATH 07/04/24 08:00 07/04/24 08:25 DC Albuterol (Ventolin Medneb) 2.5 mg Q4HPRN PRN NEB SHORTNESS OF BREATH 07/04/24 08:00 07/04/24 08:25 DC Methylprednisolone Sodium Succinate (Solu Medrol) 40 mg BID IV 07/04/24 10:00 07/04/24 10:42 Budesonide (Pulmicort) 0.5 mg BID NEB 07/04/24 10:00 07/04/24 09:16 Furosemide (Lasix Tablet) 20 mg DAILY PO 07/04/24 10:00 07/04/24 11:55 DC 07/04/24 10:41 Amlodipine Besylate (Norvasc Tablet) 10 mg DAILY PO 07/04/24 10:00 07/04/24 10:41 Donepezil HCl (Aricept Tablet) 10 mg DAILY PO 07/04/24 10:00 07/04/24 10:40 Levothyroxine Sodium (Synthroid Tablet) 75 mcg DAILY@0700 PO 07/04/24 10:00 07/04/24 10:40 Megestrol Acetate (Megace Tablet) 40 mg BID PO 07/04/24 10:00 07/04/24 11:51 DC Sertraline HCl (Zoloft) 25 mg DAILY PO 07/04/24 10:00 Hold 07/04/24 10:41 Atorvastatin Calcium (Lipitor) 20 mg HS PO 07/04/24 22:00 Trazodone HCl (Desyrel) 300 mg QHSP PRN PO FOR INSOMNIA 07/04/24 09:30 07/04/24 17:33 DC Albuterol (Ventolin Medneb) 2.5 mg Q4HWA NEB 07/04/24 10:00 07/04/24 20:19 Ipratropium [place] (Atrovent Medneb) 0.5 mg Q4HWA NEB 07/04/24 10:00 07/04/24 20:18 Ceftriaxone Sodium 50 ml @ 100 mls/hr DAILY@09 IV 07/05/24 09:00 Furosemide (Lasix Injection) 80 mg BIDD IV 07/04/24 18:00 07/04/24 18:18 Azithromycin 250 ml @ 125 mls/hr DAILY IV 07/05/24 10:00 Quetiapine Fumarate (SEROquel TABLET) 25 mg HS PO 07/04/24 22:00 Trazodone HCl (Desyrel) 50 mg HS PO 07/04/24 22:00 Vital Signs Vital Signs Date Time Temp Pulse Resp B/P (MAP) Pulse Ox O2 Delivery O2 Flow Rate FiO2 07/04/24 20:23 105 20 95 07/04/24 20:18 Room Air* 0 21 07/04/24 18:18 135/70 07/04/24 09:36 98.8 98.8 Physical Exam Gen.: Patient lying in bed in no apparent distress. On supplemental oxygen. Head: Normocephalic, atraumatic. Eyes: EOMI/PERRLA. Ears: Normal hearing. Normal anatomy. Neck/trachea: Trachea midline, supple. Nose: Normal external anatomy. Mouth: Moist mucous membranes. Chest: Decreased air entry bilaterally. No wheezing or rhonchi. Cardiovascular: Positive S1, positive S2. Regular rate and rhythm. Abdomen: Positive bowel sounds in all 4 quadrants. Soft, non-tender, non- distended. : Deferred. Rectal: Deferred. Skin: Warm, dry. Intact. Extremities: 2+ radial pulses bilaterally. No lower extremity edema. Neuro: Awake, alert, oriented x3. No gross motor or sensory deficits. Cranial nerves II through XII intact. Gait not assessed. Labs/Diagnostic Data Labs Test 07/04/24 17:22 07/04/24 10:30 07/04/24 00:20 07/03/24 23:30 Range/Units Blood Gas Specimen Type Arterial Blood Gas Sample Site Right radial Blood Gas Patient Temperature 37.0 Arterial Blood Date Drawn Arterial Blood pH 7.538 H 7.350-7.450 Arterial Blood Partial Pressure CO2 28.3 L 32.0-45.0 mmHg Arterial Blood Partial Pressure O2 63.2 L 83.0-108.0 mmHg Arterial Blood HCO3 23.5 21.0-28.0 mmol/L Arterial Blood Oxygen Saturation 92.3 L 94.0-98.0 % Arterial Blood Base Excess 1.5 -2.0-3.0 mmol/L Arterial Blood Oxyhemoglobin 91.4 L 94.0-98.0 % Arterial Blood Carboxyhemoglobin 0.3 L 0.5-1.5 % Arterial Blood Methemoglobin 0.7 0.0-1.5 % Edwin Test Yes Blood Gas Total Hemoglobin 10.10 L 12.0-16.0 g/dL Blood Gas Modality Nasal cannula FiO2 % 36.0 Troponin I High Sensitivity 45 *H </=34 ng/L Influenza Type A Antigen Negative Negative Influenza Type B Antigen Negative Negative SARS-CoV-2 Antigen (Rapid) Negative NEGATIVE Test 07/03/24 22:49 07/03/24 21:53 Range/Units White Blood Count 10.6 4.4-10.8 10^3/uL Red Blood Count 3.60 L 4.0-5.20 10^6/uL Hemoglobin 9.4 L 12.2-16.2 g/dL Hematocrit 30.6 L 36.0-46.0 % Mean Corpuscular Volume 85.0 80.0-100.0 fL Mean Corpuscular Hemoglobin 26.2 L 28.0-32.0 pg Mean Corpuscular Hemoglobin Concent 30.9 L 32.0-36.0 g/dL Red Cell Distribution Width 17.1 H 11.8-14.3 % Platelet Count 265 140-450 10^3/uL Mean Platelet Volume 7.5 6.9-10.8 fL Neutrophils (%) (Auto) 87.3 H 37.0-80.0 % Lymphocytes (%) (Auto) 4.3 L 10.0-50.0 % Monocytes (%) (Auto) 7.6 0.0-12.0 % Eosinophils (%) (Auto) 0.3 0.0-7.0 % Basophils (%) (Auto) 0.5 0.0-2.0 % Neutrophils # (Auto) 9.3 H 1.6-8.6 10 ^3/uL Lymphocytes # (Auto) 0.5 0.4-5.4 10 ^3/uL Monocytes # (Auto) 0.8 0-1.3 10 ^3/uL Eosinophils # (Auto) 0 0-0.8 10 ^3/uL Basophils # (Auto) 0.1 0-0.2 10 ^3/uL Nucleated Red Blood Cells 0.0 % B-Type Natriuretic Peptide > 5000.00 0-100 pg/mL Sodium Level 133 L 136-145 mmol/L Potassium Level 4.6 3.5-5.1 mmol/L Chloride Level 97 L 98-107 mmol/L Carbon Dioxide Level 28 20-31 mmol/L Anion Gap 8 5-15 Blood Urea Nitrogen 19 9-23 mg/dL Creatinine 3.22 H 0.550-1.02 mg/dL Glomerular Filtration Rate Calc 14 >90 mL/min BUN/Creatinine Ratio 5.9 L 10.0-20.0 Serum Glucose 106 74-106 mg/dL Calcium Level 9.2 8.7-10.4 mg/dL Assessment Impression: Acute on chronic hypoxic respiratory failure Dependence on supplemental oxygen COPD with acute exacerbation End-stage renal disease, on hemodialysis Hypertension Hypothyroidism Hyperlipidemia Plan: Supplemental oxygen Titrate to keep O2 sats above 92%. Chest x-ray on 07/03 demonstrated cardiomegaly and small left pleural effusion. Interstitial prominence, likely interstitial pulmonary edema Continue bronchodilators. IV steroids Incentive spirometry Diurese to euvolemia w/ Lasix Monitor renal function. Monitor electrolytes. Supplement as necessary. Monitor ins and outs. HD per Nephrology Follow up Nephrology recommendations DVT prophylaxis. Prognosis: Poor given patient's multiple co-morbidities. Rest of plan per hospitalist and other consultants. A total of 76 minutes of clinical care time was spent reviewing the patient record, examining the patient, making a diagnostic and therapeutic plan, discussing this plan with the medical personnel, following up on diagnostic studies and following the patient for clinical stability excluding any and all procedures. At least 50% of this time was spent in direct, [id number] contact. Thank you Dr. Clifton, for allowing me to participate in this patient's care. Further recommendations will depend on the patient's clinical course. Please do not hesitate to contact me if you have any questions or concerns. This medical document was created using an electronic medical record system with [employer] dictation system. Although these documentations are being carefully reviewed, there may still be some phonetic and typographical changes. The errors are purely typographical, due to imperfection on the software program, and do not reflect any compromise in the patient's medical care. Plan discussed with: Patient, Other (RN/MD Clifton) JOSS GIVENS MD Jul 04, 2024 21:15
[2024-07-05] VITALS (15 sets, daily range): BP systolic 136–155; BP diastolic 66–78; PULSE 54–107; RESP 16–22; TEMP 97.9–98.3; O2SAT 95–100
[2024-07-05] MEDS: ATORVASTATIN 20 MG TAB PO SCH (00:30)
[2024-07-05] MEDS: QUEtiapine FUMARATE 25 MG TAB PO SCH (00:30)
[2024-07-05] MEDS: traZODone HCL 50 MG TAB PO SCH (00:31)
[2024-07-05 07:10] LABS: Basophils # (auto) 0 10 ^3/uL (0-0.2); Basophils % (auto) 0.2 % (0.0-2.0); Eosinophils # (auto) 0 10 ^3/uL (0-0.8); Hematocrit 29.6 % (36.0-46.0); Hemoglobin 9.5 g/dL (12.2-16.2); Lymphocytes # (auto) 0.3 10 ^3/uL (0.4-5.4); Lymphocytes % (auto) 5.6 % (10.0-50.0); Mean Corpuscular Hgb Conc. 32.1 g/dL (32.0-36.0); Monocytes # (auto) 0.1 10 ^3/uL (0-1.3); Monocytes % (auto) 2.8 % (0.0-12.0); Neutrophils # (auto) 4.8 10 ^3/uL (1.6-8.6); Neutrophils % (auto) 91.4 % (37.0-80.0); Platelet Count (auto) 310 10^3/uL (140-450); Red Blood Cells 3.52 10^6/uL (4.0-5.20); Red Cell Distribution Width 16.9 % (11.8-14.3); White Blood Cell 5.2 10^3/uL (4.4-10.8)
[2024-07-05 07:33] LABS: Alanine Aminotransferase 12 U/L (7-40); Albumin 3.4 g/dL (3.2-4.8); Alkaline Phosphatase 83 U/L (46-116); Anion Gap 6 (5-15); Aspartate Aminotransferase 20 U/L (13-40); BUN/Creatinine Ratio 5.6 (10.0-20.0); Blood Urea Nitrogen 18 mg/dL (9-23); Calcium 9.6 mg/dL (8.7-10.4); Chloride 100 mmol/L (98-107); Potassium 4.2 mmol/L (3.5-5.1); Sodium 138 mmol/L (136-145)
[2024-07-05 07:34] LABS: Bilirubin, Total 0.2 mg/dL (0.2-1.0); Carbon Dioxide 32 mmol/L (20-31); Glucose 120 mg/dL (74-106); Total Protein 5.6 g/dL (5.7-8.2)
[2024-07-05 07:35] LABS: % Iron Saturation 20.4 % (15-50)
[2024-07-05 10:31] LABS: Hepatitis A Ab IgM Negative; Hepatitis B Core IgM Negative (Negative); Hepatitis B Surface Antigen Negative (Negative); Hepatitis C Antibody Negative (Negative)
--- NOTE | 2024-07-05 11:20 | DVHPN2 ---
Subjective Currently reciving HD. Has not had required Bipap since yesterday. Speaking in full sentence with NC on. Reviewed: Care Plan, H&P Changes from previous H/P or p: Changes (improving. ) Eyes: No Pain, No Vision change, No Conjunctivae inflammation, No Eyelid inflammation, No Other, No Redness ENT: No Ear pain, No Ear discharge, No Nose pain, No Nose discharge, No Nose congestion, No Mouth pain, No Mouth swelling, No Throat pain, No Throat swelling, No Other Cardiovascular: No Chest Pain, No Palpitations, No Orthopnea, No Paroxysmal Noc. Dyspnea, No Edema, No Lt Headedness, No Other Respiratory: No Cough, No Dry; Shortness of breath, SOB with excertion, W heezing; No Hemoptysis, No Pleuritic Pain, No Sputum, No Other Gastrointestinal: No Nausea, No Vomiting, No Abdominal Pain, No Diarrhea, No Constipation, No Melena, No Hematochezia, No Other Genitourinary: No Dysuria, No Frequency, No Incontinence, No Hematuria, No Retention, No Other Musculoskeletal: No other, No neck pain, No shoulder pain, No arm pain, No back pain, No hand pain, No leg pain, No foot pain Skin: No Rash, No Lesions, No Jaundice, No Bruising, No Other Objective Vitals Vital Signs Date Time Temp Pulse Resp B/P (MAP) Pulse Ox O2 Delivery O2 Flow Rate FiO2 07/05/24 09:31 97 Nasal Cannula* 4 36 07/05/24 08:34 98.0 99 16 146/68 (94) 98.0 Intake/Output Intake and Output 07/05/24 07:00 Intake Total 250 ml Output Total 0 ml Balance 250 ml Intake Oral 0 ml IV Total 250 ml Output Urine Total 0 ml General Appearance: Alert, Oriented X3, mild distress HEENT: Atraumatic Lungs: Other (Crackles and poor air movement. ) Cardiovascular: Regular rate, Normal S1, Normal S2 Abdomen: Soft, No tenderness Musculoskeletal: Normal sensory function Extremities: No edema Neuro: Normal speech Psych/Mental Status: Mental status NL Medications Current Medications Medications Dose Ordered Sig/Nirmal Route Start Time Stop Time Status Last Admin Dose Admin Sodium Chloride 10 ml Q8HR IV 07/04/24 14:00 07/05/24 06:31 10 ML Acetaminophen/ Hydrocodone Bitart 1 tab Q4HP PRN PO 07/04/24 08:00 Ondansetron HCl 4 mg Q4HP PRN IV 07/04/24 08:00 Docusate Sodium 100 mg BIDPRN PRN PO 07/04/24 08:00 Acetaminophen 650 mg Q6HP PRN PO 07/04/24 08:00 Nitroglycerin 0.4 mg Q5MINP PRN SL 07/04/24 08:00 Morphine Sulfate 2 mg Q30M PRN IV 07/04/24 08:00 Methylprednisolone Sodium Succinate 40 mg BID IV 07/04/24 10:00 07/05/24 00:31 40 MG Budesonide 0.5 mg BID NEB 07/04/24 10:00 07/05/24 06:42 0.5 MG Amlodipine Besylate 10 mg DAILY PO 07/04/24 10:00 07/04/24 10:41 10 MG Donepezil HCl 10 mg DAILY PO 07/04/24 10:00 07/04/24 10:40 10 MG Levothyroxine Sodium 75 mcg DAILY@0700 PO 07/04/24 10:00 07/04/24 10:40 75 MCG Sertraline HCl 25 mg DAILY PO 07/04/24 10:00 Hold 07/04/24 10:41 25 MG Atorvastatin Calcium 20 mg HS PO 07/04/24 22:00 07/05/24 00:30 20 MG Albuterol 2.5 mg Q4HWA NEB 07/04/24 10:00 07/05/24 06:42 2.5 MG Ipratropium [place] 0.5 mg Q4HWA NEB 07/04/24 10:00 07/05/24 06:42 0.5 MG Ceftriaxone Sodium 50 ml @ 100 mls/hr DAILY@09 IV 07/05/24 09:00 Furosemide 80 mg BIDD IV 07/04/24 18:00 07/04/24 18:18 80 MG Azithromycin 250 ml @ 125 mls/hr DAILY IV 07/05/24 10:00 Quetiapine Fumarate 25 mg HS PO 07/04/24 22:00 07/05/24 00:30 25 MG Trazodone HCl 50 mg HS PO 07/04/24 22:00 07/05/24 00:31 50 MG Laboratory Results Laboratory Tests 07/05/24 06:53 Chemistry Test 07/05/24 06:53 Albumin 3.4 g/dL (3.2-4.8) Calcium Level 9.6 mg/dL (8.7-10.4) Total Protein 5.6 g/dL (5.7-8.2) L LFT Test 07/05/24 06:53 Alanine Aminotransferase (ALT) 12 U/L (7-40) Alkaline Phosphatase 83 U/L (46-116) Aspartate Amino Transferase (AST) 20 U/L (13-40) Total Bilirubin 0.2 mg/dL (0.2-1.0) Assessment/Plan Assessment/Plan Acute Resp failu with hypoxia. - improving with HD session. COPD with acute exacerbation ESRD on HD Hypertension, Hypothyroidism, Hyperlipidemia, dementia Plan: Bipap prn Appreacite Pulm recs. Ceft and Azitro continue Donezepil. Nephrology consult - HD was performed today. Breathing treatments IV steroids, FULL CODE/ Dispo: [place] home. Plan discussed with: Patient My Orders Orders - JAVID CLIFTON MD Procedure Category Date Status Time Azithromycin 500mg/ PHA 07/05/24 In Process 250ml (Zithromax 50 10:00 *Consult Dr Silvestre Agustin CONS 07/04/24 Transmitted 11:52 Quetiapine Fumarate PHA 07/04/24 In Process Tablet (Seroquel Tab 22:00 Trazodone Hcl PHA 07/04/24 In Process (Desyrel) 22:00 [facility] 07/04/24 In Process Clarification: 17:48 Date of Service: Jul 05, 2024 Billing Provider: JAVID CLIFTON MD Common Visit Codes: [id number] INP/OBS CARE(HIGH) JAVID CLIFTON MD Jul 05, 2024 11:20
[2024-07-05] MEDS: cefTRIAXone 1GM/50ML D5W 50 ML IV SCH (11:27)
--- NOTE | 2024-07-05 12:39 | DVHPN2 ---
Progress Note - Dictate Date Seen: Jul 05, 2024 Medical Necessity Reason Pt with a Central, PICC or Fol: No Subjective Patient underwent dialysis today with 3 L UF removed patient feels great and she wants to go home vital signs Vital Sign Date Time Temp Pulse Resp B/P (MAP) Pulse Ox O2 Delivery O2 Flow Rate FiO2 07/05/24 11:29 127/80 07/05/24 09:31 97 Nasal Cannula* 4 36 07/05/24 08:34 98.0 99 16 98.0 Total Intake and Output 07/04/24 07/04/24 07/05/24 15:00 23:00 07:00 Intake Total 250 ml 0 ml Output Total 0 ml Balance 250 ml 0 ml medications Current Medications Medications Dose Ordered Sig/Nirmal Route Start Time Stop Time Status Last Admin Dose Admin Sodium Chloride 10 ml Q8HR IV 07/04/24 14:00 07/05/24 06:31 10 ML Acetaminophen/ Hydrocodone Bitart 1 tab Q4HP PRN PO 07/04/24 08:00 Ondansetron HCl 4 mg Q4HP PRN IV 07/04/24 08:00 Docusate Sodium 100 mg BIDPRN PRN PO 07/04/24 08:00 Acetaminophen 650 mg Q6HP PRN PO 07/04/24 08:00 Nitroglycerin 0.4 mg Q5MINP PRN SL 07/04/24 08:00 Morphine Sulfate 2 mg Q30M PRN IV 07/04/24 08:00 Methylprednisolone Sodium Succinate 40 mg BID IV 07/04/24 10:00 07/05/24 11:28 40 MG Budesonide 0.5 mg BID NEB 07/04/24 10:00 07/05/24 06:42 0.5 MG Amlodipine Besylate 10 mg DAILY PO 07/04/24 10:00 07/05/24 11:29 10 MG Donepezil HCl 10 mg DAILY PO 07/04/24 10:00 07/05/24 11:28 10 MG Levothyroxine Sodium 75 mcg DAILY@0700 PO 07/04/24 10:00 07/04/24 10:40 75 MCG Sertraline HCl 25 mg DAILY PO 07/04/24 10:00 Hold 07/04/24 10:41 25 MG Atorvastatin Calcium 20 mg HS PO 07/04/24 22:00 07/05/24 00:30 20 MG Albuterol 2.5 mg Q4HWA NEB 07/04/24 10:00 07/05/24 06:42 2.5 MG Ipratropium [place] 0.5 mg Q4HWA NEB 07/04/24 10:00 07/05/24 06:42 0.5 MG Ceftriaxone Sodium 50 ml @ 100 mls/hr DAILY@09 IV 07/05/24 09:00 07/05/24 11:27 100 MLS/HR Furosemide 80 mg BIDD IV 07/04/24 18:00 07/04/24 18:18 80 MG Azithromycin 250 ml @ 125 mls/hr DAILY IV 07/05/24 10:00 Quetiapine Fumarate 25 mg HS PO 07/04/24 22:00 07/05/24 00:30 25 MG Trazodone HCl 50 mg HS PO 07/04/24 22:00 07/05/24 00:31 50 MG objective HEENT: No evidence of JVD, no oral ulcers. Pulmonary: Lungs are clear on auscultation bilaterally Cardiovascular S1-S2, no S3 or S4 Abdomen: Bowel sounds positive, soft no rebound tenderness Skin: No rash Neurological: Alert, oriented, no focal weakness laboratory and microbiology Laboratory Tests 07/05/24 06:53 Test 07/05/24 06:53 Range/Units Serum Glucose 120 H 74-106 mg/dL Assessment/Plan Assessment: 1. End-stage renal disease on hemodialysis 2. Acute COPD exacerbation 3. Acute CHF, improved 4. Anemia of end-stage renal disease 5. Hypertension 6. Acute on chronic hypoxic respiratory failure, improved Plan: Hemodialysis was completed today with 3 L UF. Limit fluid intake Lasix IV Bronchodilator therapy, steroids, antibiotics as per primary team Less than 1 L per day Slava for goal hemoglobin 10 g to 11 grams/deciliter Continue antihypertensive med Oxygen supplementation to keep pulses more than 92% Patient is cleared to be discharged home from Nephrology perspective. Thank you very much for allowing us to participate in the care of this patient Plan discussed with: Patient, Spouse GEOFF JOE MD Jul 05, 2024 12:39
[2024-07-05] MEDS: AZITHROMYCIN 500MG/ 250ML 250 ML IV SCH (15:39)
[2024-07-05] MEDS: EPOETIN ALFA-EPBX 4,000 UNIT/ML VIAL SC ONE (21:37)
--- NOTE | 2024-07-05 23:52 | DVHPN2 ---
Progress Note - Dictate Date Seen: Jul 05, 2024 Medical Necessity Reason Pt with a Central, PICC or Fol: No Subjective Patient seen and examined at bedside. Remains on supplemental oxygen Overnight events reviewed. vital signs Vital Sign Date Time Temp Pulse Resp B/P (MAP) Pulse Ox O2 Delivery O2 Flow Rate FiO2 07/05/24 21:00 98.3 100 19 142/72 (95) 99 98.3 07/05/24 18:06 Nasal Cannula 3.0 07/05/24 18:06 32 Total Intake and Output 07/04/24 07/04/24 07/05/24 15:00 23:00 07:00 Intake Total 250 ml 0 ml Output Total 0 ml Balance 250 ml 0 ml medications Current Medications Medications Dose Ordered Sig/Nirmal Route Start Time Stop Time Status Last Admin Dose Admin Sodium Chloride 10 ml Q8HR IV 07/04/24 14:00 07/05/24 21:42 10 ML Acetaminophen/ Hydrocodone Bitart 1 tab Q4HP PRN PO 07/04/24 08:00 Ondansetron HCl 4 mg Q4HP PRN IV 07/04/24 08:00 Docusate Sodium 100 mg BIDPRN PRN PO 07/04/24 08:00 Acetaminophen 650 mg Q6HP PRN PO 07/04/24 08:00 Nitroglycerin 0.4 mg Q5MINP PRN SL 07/04/24 08:00 Morphine Sulfate 2 mg Q30M PRN IV 07/04/24 08:00 Methylprednisolone Sodium Succinate 40 mg BID IV 07/04/24 10:00 07/05/24 21:36 40 MG Budesonide 0.5 mg BID NEB 07/04/24 10:00 07/05/24 18:06 0.5 MG Amlodipine Besylate 10 mg DAILY PO 07/04/24 10:00 07/05/24 11:29 10 MG Donepezil HCl 10 mg DAILY PO 07/04/24 10:00 07/05/24 11:28 10 MG Levothyroxine Sodium 75 mcg DAILY@0700 PO 07/04/24 10:00 07/04/24 10:40 75 MCG Sertraline HCl 25 mg DAILY PO 07/04/24 10:00 Hold 07/04/24 10:41 25 MG Atorvastatin Calcium 20 mg HS PO 07/04/24 22:00 07/05/24 21:38 20 MG Albuterol 2.5 mg Q4HWA NEB 07/04/24 10:00 07/05/24 18:06 2.5 MG Ipratropium [place] 0.5 mg Q4HWA NEB 07/04/24 10:00 07/05/24 18:07 0.5 MG Ceftriaxone Sodium 50 ml @ 100 mls/hr DAILY@09 IV 07/05/24 09:00 07/05/24 11:27 100 MLS/HR Furosemide 80 mg BIDD IV 07/04/24 18:00 07/05/24 20:02 80 MG Azithromycin 250 ml @ 125 mls/hr DAILY IV 07/05/24 10:00 07/05/24 15:39 125 MLS/HR Quetiapine Fumarate 25 mg HS PO 07/04/24 22:00 07/05/24 21:37 25 MG Trazodone HCl 50 mg HS PO 07/04/24 22:00 07/05/24 21:38 50 MG objective Gen.: Patient lying in bed in no apparent distress. On supplemental oxygen. Head: Normocephalic, atraumatic. Eyes: EOMI/PERRLA. Ears: Normal hearing. Normal anatomy. Neck/trachea: Trachea midline, supple. Nose: Normal external anatomy. Mouth: Moist mucous membranes. Chest: Decreased air entry bilaterally. No wheezing or rhonchi. Cardiovascular: Positive S1, positive S2. Regular rate and rhythm. Abdomen: Positive bowel sounds in all 4 quadrants. Soft, non-tender, non- distended. : Deferred. Rectal: Deferred. Skin: Warm, dry. Intact. Extremities: 2+ radial pulses bilaterally. No lower extremity edema. Neuro: Awake, alert, oriented x3. No gross motor or sensory deficits. Cranial nerves II through XII intact. Gait not assessed. laboratory and microbiology Laboratory Tests 07/05/24 06:53 Test 07/05/24 06:53 Range/Units Serum Glucose 120 H 74-106 mg/dL Assessment/Plan Impression: Acute on chronic hypoxic respiratory failure Dependence on supplemental oxygen COPD with acute exacerbation End-stage renal disease, on hemodialysis Hypertension Hypothyroidism Hyperlipidemia Events: Remains on supplemental oxygen, 3 LPM NC Taper O2 as tolerated Continue bronchodilators Continue steroids Continue antibiotics Incentive spirometry Monitor renal function. Monitor electrolytes. Supplement as necessary. Monitor ins and outs. HD per Nephrology Nephrology recommendations appreciated Labs and imaging reviewed. Rest of plan as noted below. Plan: Supplemental oxygen Titrate to keep O2 sats above 92%. Chest x-ray on 07/03 demonstrated cardiomegaly and small left pleural effusion. Interstitial prominence, likely interstitial pulmonary edema Continue bronchodilators. IV steroids Incentive spirometry Diurese to euvolemia w/ Lasix Monitor renal function. Monitor electrolytes. Supplement as necessary. Monitor ins and outs. HD per Nephrology Nephrology recommendations appreciated DVT prophylaxis. Prognosis: Guarded given patient's multiple co-morbidities. Rest of plan per hospitalist and other consultants. A total of 51 minutes of clinical care time was spent reviewing the patient record, examining the patient, making a diagnostic and therapeutic plan, discussing this plan with the medical personnel, following up on diagnostic studies and following the patient for clinical stability excluding any and all procedures. At least 50% of this time was spent in direct, [id number] contact. Thank you Dr. Ervin, for allowing me to participate in this patient's care. Further recommendations will depend on the patient's clinical course. Please do not hesitate to contact me if you have any questions or concerns. This medical document was created using an electronic medical record system with [employer] dictation system. Although these documentations are being carefully reviewed, there may still be some phonetic and typographical changes. The errors are purely typographical, due to imperfection on the software program, and do not reflect any compromise in the patient's medical care. Plan discussed with: Patient, Other (RODRIGO Barnard) JOSS GIVENS MD Jul 05, 2024 23:52
[2024-07-06] VITALS (10 sets, daily range): BP systolic 128–162; BP diastolic 74–81; PULSE 18–113; RESP 19–21; TEMP 98.1–99; O2SAT 94–100
[2024-07-06] MEDS: SODIUM CHL 0.9% 1000 ML BAG XX ONE (08:06)
[2024-07-06] MEDS ORDERED: PRED20TA2 PO (11:09)
[2024-07-06] MEDS ORDERED: AZIT-185 PO (11:09)
--- NOTE | 2024-07-06 11:15 | DVHDS2 ---
Discharge Summary Date of Admission Jul 04, 2024 at 07:52 Date of Discharge: Jul 06, 2024 Admitting Diagnosis COPD with acute exacerbation, ESRD on HD, Hypertension, Hypothyroidism, Hyperlipidemia, Labs/Diagnostic Data: Laboratory Results Test 07/05/24 06:53 07/04/24 17:22 07/04/24 10:30 07/04/24 00:20 White Blood Count 5.2 10^3/uL (4.4-10.8) Red Blood Count 3.52 10^6/uL (4.0-5.20) Hemoglobin 9.5 g/dL (12.2-16.2) Hematocrit 29.6 % (36.0-46.0) Mean Corpuscular Volume 84.0 fL (80.0-100.0) Mean Corpuscular Hemoglobin 27.0 pg (28.0-32.0) Mean Corpuscular Hemoglobin Concent 32.1 g/dL (32.0-36.0) Red Cell Distribution Width 16.9 % (11.8-14.3) Platelet Count 310 10^3/uL (140-450) Mean Platelet Volume 7.3 fL (6.9-10.8) Neutrophils (%) (Auto) 91.4 % (37.0-80.0) Lymphocytes (%) (Auto) 5.6 % (10.0-50.0) Monocytes (%) (Auto) 2.8 % (0.0-12.0) Eosinophils (%) (Auto) 0.0 % (0.0-7.0) Basophils (%) (Auto) 0.2 % (0.0-2.0) Neutrophils # (Auto) 4.8 10 ^3/uL (1.6-8.6) Lymphocytes # (Auto) 0.3 10 ^3/uL (0.4-5.4) Monocytes # (Auto) 0.1 10 ^3/uL (0-1.3) Eosinophils # (Auto) 0 10 ^3/uL (0-0.8) Basophils # (Auto) 0 10 ^3/uL (0-0.2) Nucleated Red Blood Cells 0.0 % Sodium Level 138 mmol/L (136-145) Potassium Level 4.2 mmol/L (3.5-5.1) Chloride Level 100 mmol/L (98-107) Carbon Dioxide Level 32 mmol/L (20-31) Anion Gap 6 (5-15) Blood Urea Nitrogen 18 mg/dL (9-23) Creatinine 3.22 mg/dL (0.550-1.02) Glomerular Filtration Rate Calc 14 mL/min (>90) BUN/Creatinine Ratio 5.6 (10.0-20.0) Serum Glucose 120 mg/dL (74-106) Calcium Level 9.6 mg/dL (8.7-10.4) Iron Level 34 ug/dL (50-170) Total Iron Binding Capacity 167 ug/dL (250-425) Percent Iron Saturation 20.4 % (15-50) Ferritin 973.5 ng/mL (10-291) Total Bilirubin 0.2 mg/dL (0.2-1.0) Aspartate Amino Transferase (AST) 20 U/L (13-40) Alanine Aminotransferase (ALT) 12 U/L (7-40) Alkaline Phosphatase 83 U/L (46-116) Total Protein 5.6 g/dL (5.7-8.2) Albumin 3.4 g/dL (3.2-4.8) Hepatitis A IgM Antibody Negative Hepatitis B Surface Antigen Negative (Negative) Hepatitis B Core IgM Antibody Negative (Negative) Hepatitis C Antibody Negative (Negative) Blood Gas Specimen Type Arterial Blood Gas Sample Site Right radial Blood Gas Patient Temperature 37.0 Arterial Blood Date Drawn [id number] Arterial Blood pH 7.538 (7.350-7.450) Arterial Blood Partial Pressure CO2 28.3 mmHg (32.0-45.0) Arterial Blood Partial Pressure O2 63.2 mmHg (83.0-108.0) Arterial Blood HCO3 23.5 mmol/L (21.0-28.0) Arterial Blood Oxygen Saturation 92.3 % (94.0-98.0) Arterial Blood Base Excess 1.5 mmol/L (-2.0-3.0) Arterial Blood Oxyhemoglobin 91.4 % (94.0-98.0) Arterial Blood Carboxyhemoglobin 0.3 % (0.5-1.5) Arterial Blood Methemoglobin 0.7 % (0.0-1.5) Edwin Test Yes Blood Gas Total Hemoglobin 10.10 g/dL (12.0-16.0) Blood Gas Modality Nasal cannula FiO2 % 36.0 Troponin I High Sensitivity 45 ng/L (</=34) Test 07/03/24 23:30 07/03/24 22:49 Influenza Type A Antigen Negative (Negative) Influenza Type B Antigen Negative (Negative) SARS-CoV-2 Antigen (Rapid) Negative (NEGATIVE) B-Type Natriuretic Peptide > 5000.00 pg/mL (0-100) Other Laboratory Tests 07/05/24 06:53 Brief Hx & Hospital Course: HPI on admission History of Present Illness Reason for Visit: Shortness of breath History of Present Illness Mindy Donnelly is an 83-year-old female with past medial history of COPD, hypertension, hyperlipidemia, hypothyroidism, and ESRD on HD T,Th,Sat, who came to the hospital for shortness of breath. Patient states she has been short of breath for about 1 week. She went to a different hospital 2 days ago, who gave her a breathing treatment and sent her home. On assessment, patient is tachypneic, using accessory muscles, and wheezing. RT has been paged for a breathing treatment. CXR IMPRESSION: 1. Cardiomegaly and small left pleural effusion. 2. Interstitial prominence in the lungs which could be interstitial pulmonary edema After admission, patient had increased work of breathing with abdominal breating. Oxygen saturation dropped to mid 80s. Placed on BIpap for 2 hours. Patient also recieved HD and work of breathing improved. Remained on NC throughout hospitalization. Was also treated with Ceft and Azitromycin and streoids. Advised to complete course of Azitro and steroid at home. Received an extra day of HD the day prior to discharge. Condition at Discharge: Stable Final Diagnosis/Problems List Acute Resp Failure Fluid Overload Acute COPD exascerbation. Discharge Disposition: Home Discharge Instruct/Medications Diet: Renal Activity: No Restrictions, As Tolerated Follow Up/Referral: f/u with PCP in 2-3 days. Intiate HD again on Tuesday Medications: Complete course of antiboitcs and prednisone. Discharge Statement: "Patient was advised to return to the ER or call 911 if any headaches, dizziness, shortness of breath, chest pain, abdominal pain, bleeding, fevers, or worsening of medical condition. Patient was counseled about treatment plan, medications, possible side effects, patientverbalized understanding. All questions were answered to the best of my ability. This discharge took greater then 30 minutes in planning, reviewing documentation, counseling the patient, and discussing with other team members." ASSESSMENT ASSESSMENT Assessment Acute Resp Failure Fluid Overload Acute COPD exascerbation. Date of Service: Jul 06, 2024 Billing Provider: JAVID CLIFTON MD Common Visit Codes: 53039-FXS/OBS DISCH DAY >30min JAVID CLIFTON MD Jul 06, 2024 11:15
--- NOTE | 2024-07-06 13:45 | DVHPN2 ---
Progress Note - Dictate Date Seen: Jul 06, 2024 Medical Necessity Reason Pt with a Central, PICC or Fol: No Subjective Patient wants to go home today vital signs Vital Sign Date Time Temp Pulse Resp B/P (MAP) Pulse Ox O2 Delivery O2 Flow Rate FiO2 07/06/24 12:51 98.1 97 20 128/74 (92) 94 98.1 07/06/24 10:00 Nasal Cannula 2.0 07/06/24 10:00 28 Total Intake and Output 07/05/24 07/05/24 07/06/24 15:00 23:00 07:00 Intake Total 50 ml 650 ml 450 ml Balance 50 ml 650 ml 450 ml medications Current Medications Medications Dose Ordered Sig/Nirmal Route Start Time Stop Time Status Last Admin Dose Admin Sodium Chloride 10 ml Q8HR IV 07/04/24 14:00 07/06/24 06:21 10 ML Acetaminophen/ Hydrocodone Bitart 1 tab Q4HP PRN PO 07/04/24 08:00 Ondansetron HCl 4 mg Q4HP PRN IV 07/04/24 08:00 Docusate Sodium 100 mg BIDPRN PRN PO 07/04/24 08:00 Acetaminophen 650 mg Q6HP PRN PO 07/04/24 08:00 Nitroglycerin 0.4 mg Q5MINP PRN SL 07/04/24 08:00 Morphine Sulfate 2 mg Q30M PRN IV 07/04/24 08:00 Methylprednisolone Sodium Succinate 40 mg BID IV 07/04/24 10:00 07/06/24 09:42 40 MG Budesonide 0.5 mg BID NEB 07/04/24 10:00 07/06/24 09:45 0.5 MG Amlodipine Besylate 10 mg DAILY PO 07/04/24 10:00 07/06/24 09:43 10 MG Donepezil HCl 10 mg DAILY PO 07/04/24 10:00 07/06/24 09:42 10 MG Levothyroxine Sodium 75 mcg DAILY@0700 PO 07/04/24 10:00 07/06/24 06:21 75 MCG Sertraline HCl 25 mg DAILY PO 07/04/24 10:00 Hold 07/04/24 10:41 25 MG Atorvastatin Calcium 20 mg HS PO 07/04/24 22:00 07/05/24 21:38 20 MG Albuterol 2.5 mg Q4HWA NEB 07/04/24 10:00 07/06/24 09:45 2.5 MG Ipratropium [place] 0.5 mg Q4HWA NEB 07/04/24 10:00 07/06/24 09:45 0.5 MG Ceftriaxone Sodium 50 ml @ 100 mls/hr DAILY@09 IV 07/05/24 09:00 07/06/24 09:42 100 MLS/HR Furosemide 80 mg BIDD IV 07/04/24 18:00 07/06/24 06:21 80 MG Azithromycin 250 ml @ 125 mls/hr DAILY IV 07/05/24 10:00 07/06/24 10:19 125 MLS/HR Quetiapine Fumarate 25 mg HS PO 07/04/24 22:00 07/05/24 21:37 25 MG Trazodone HCl 50 mg HS PO 07/04/24 22:00 07/05/24 21:38 50 MG objective HEENT: No evidence of JVD, no oral ulcers. Pulmonary: Lungs are clear on auscultation bilaterally Cardiovascular S1-S2, no S3 or S4 Abdomen: Bowel sounds positive, soft no rebound tenderness Skin: No rash Neurological: Alert, oriented, no focal weakness laboratory and microbiology Laboratory Tests 07/05/24 06:53 Test 07/05/24 06:53 Range/Units Serum Glucose 120 H 74-106 mg/dL Assessment/Plan Assessment: 1. End-stage renal disease on hemodialysis 2. Acute COPD exacerbation 3. Acute CHF, improved 4. Anemia of end-stage renal disease 5. Hypertension 6. Acute on chronic hypoxic respiratory failure, improved Plan: Continue dialysis TTS. Limit fluid intake Lasix IV Bronchodilator therapy, steroids, antibiotics as per primary team Less than 1 L per day Slava for goal hemoglobin 10 g to 11 grams/deciliter Continue antihypertensive med Oxygen supplementation to keep pulses more than 92% Patient is cleared to be discharged home from Nephrology perspective. Thank you very much for allowing us to participate in the care of this patient Plan discussed with: Patient, Spouse GEOFF JOE MD Jul 06, 2024 13:45
--- NOTE | 2024-07-06 23:54 | DVHPN2 ---
Progress Note - Dictate Date Seen: Jul 06, 2024 Medical Necessity Reason Pt with a Central, PICC or Fol: No Subjective Patient seen and examined at bedside. Remains on supplemental oxygen Overnight events reviewed. vital signs Vital Sign Date Time Temp Pulse Resp B/P (MAP) Pulse Ox O2 Delivery O2 Flow Rate FiO2 07/06/24 12:51 98.1 97 20 128/74 (92) 94 98.1 07/06/24 10:00 Nasal Cannula 2.0 07/06/24 10:00 28 Total Intake and Output 07/05/24 07/05/24 07/06/24 15:00 23:00 07:00 Intake Total 50 ml 650 ml 450 ml Balance 50 ml 650 ml 450 ml objective Gen.: Patient lying in bed in no apparent distress. On supplemental oxygen. Head: Normocephalic, atraumatic. Eyes: EOMI/PERRLA. Ears: Normal hearing. Normal anatomy. Neck/trachea: Trachea midline, supple. Nose: Normal external anatomy. Mouth: Moist mucous membranes. Chest: Decreased air entry bilaterally. No wheezing or rhonchi. Cardiovascular: Positive S1, positive S2. Regular rate and rhythm. Abdomen: Positive bowel sounds in all 4 quadrants. Soft, non-tender, non- distended. : Deferred. Rectal: Deferred. Skin: Warm, dry. Intact. Extremities: 2+ radial pulses bilaterally. No lower extremity edema. Neuro: Awake, alert, oriented x3. No gross motor or sensory deficits. Cranial nerves II through XII intact. Gait not assessed. laboratory and microbiology Laboratory Tests 07/05/24 06:53 Test 07/05/24 06:53 Range/Units Serum Glucose 120 H 74-106 mg/dL Assessment/Plan Impression: Acute on chronic hypoxic respiratory failure Dependence on supplemental oxygen COPD with acute exacerbation End-stage renal disease, on hemodialysis Hypertension Hypothyroidism Hyperlipidemia Events: Remains on supplemental oxygen, 2 LPM NC Taper O2 as tolerated Continue bronchodilators Continue steroids Continue antibiotics Incentive spirometry Monitor renal function. Monitor electrolytes. Supplement as necessary. Monitor ins and outs. HD per Nephrology Nephrology recommendations appreciated Patient is stable for discharge from the pulmonary standpoint. Labs and imaging reviewed. Rest of plan as noted below. Plan: Supplemental oxygen Titrate to keep O2 sats above 92%. Chest x-ray on 07/03 demonstrated cardiomegaly and small left pleural effusion. Interstitial prominence, likely interstitial pulmonary edema Continue bronchodilators. Continue antibiotics Continue steroids Incentive spirometry Diurese to euvolemia w/ Lasix Monitor renal function. Monitor electrolytes. Supplement as necessary. Monitor ins and outs. HD per Nephrology Nephrology recommendations appreciated DVT prophylaxis. Prognosis: Guarded given patient's multiple co-morbidities. Rest of plan per hospitalist and other consultants. A total of 51 minutes of clinical care time was spent reviewing the patient record, examining the patient, making a diagnostic and therapeutic plan, discussing this plan with the medical personnel, following up on diagnostic studies and following the patient for clinical stability excluding any and all procedures. At least 50% of this time was spent in direct, [id number] contact. Thank you Dr. Ervin, for allowing me to participate in this patient's care. Further recommendations will depend on the patient's clinical course. Please do not hesitate to contact me if you have any questions or concerns. This medical document was created using an electronic medical record system with [employer] computerized dictation system. Although these documentations are being carefully reviewed, there may still be some phonetic and typographical changes. The errors are purely typographical, due to imperfection on the software program, and do not reflect any compromise in the patient's medical care. Plan discussed with: Patient, Other (RODRIGO Summer) JOSS GIVENS MD Jul 06, 2024 23:54
== END 2024-07-06 14:08 | disposition home or self-care (01) | DRG 640 ==
LOC: EDBD 20:50 → ER 20:50 → OVERFLOW 07-04 07:52 → TELE-WESTW 07-04 21:41
PROVIDERS: ADMIT Nurse Practitioner Family; ATTEND Family Medicine
PROC: 5A09357 Assistance with Respiratory Ventilation, Less than 24 Consecutive Hours, Continuous Positive Airway Pressure (ICD-10-PCS; principal; 2024-07-04)
PROC: 5A1D70Z Performance of Urinary Filtration, Intermittent, Less than 6 Hours Per Day (ICD-10-PCS; 2024-07-04)
PROC: 5A1D70Z Performance of Urinary Filtration, Intermittent, Less than 6 Hours Per Day (ICD-10-PCS; 2024-07-05)
DX: E87.70 Fluid overload, unspecified (principal); J96.21 Acute and chronic respiratory failure with hypoxia; N18.6 End stage renal disease; I13.2 Hypertensive heart and chronic kidney disease with heart failure and with stage 5 chronic kidney disease, or end stage renal disease; J44.1 Chronic obstructive pulmonary disease with (acute) exacerbation; I50.9 Heart failure, unspecified; E03.9 Hypothyroidism, unspecified; E78.5 Hyperlipidemia, unspecified; D63.1 Anemia in chronic kidney disease; F03.90 Unspecified dementia, unspecified severity, without behavioral disturbance, psychotic disturbance, mood disturbance, and anxiety; Z91.81 History of falling; Z90.710 Acquired absence of both cervix and uterus; Z99.2 Dependence on renal dialysis; Z99.81 Dependence on supplemental oxygen
CPT/HCPCS: 36415; 36600; 71045; 80048; 80053; 80074; 82728; 82805; 83540; 83550; 83880; 84484; 85025; 87426; 87804; 90935; 93005; 94640; 94660; 96365; 96367; 96375; 97110; 97116; 97163; 97530; 99291; G0378